=== PATIENT | female | born 1980 | race Caucasian/White ===

== ENCOUNTER 2017-03-08 17:53 | Emergency (ER) | payer OTHER, MEDICAID ==
--- NOTE | 2017-03-08 18:27 | EDPHY ---
H & P Stated Complaint: right foot injury occurred today at 11am when dropped kim on foot, +[facility] HPI/ROS: CHIEF COMPLAINT: Foot injury HISTORY OF PRESENT ILLNESS: This is a 36-year-old female who injured her right foot while trying to change a tire. The tire kim was not stable and it fell onto her foot. She has pain involving the right small toe. She has been able to ambulate. She was also struck on the left forearm. She has an abrasion at that site. She is not complaining of left forearm pain. No other injuries. REVIEW OF SYSTEMS: A ten point review of systems was performed and is negative with the exception of the items mentioned in the HPI. - Personal History LMP (Females 10-55): Hysterectomy - Medical/Surgical History Hx Diabetes: Yes Other PMH: bipolar, diabetes, gallbladder, hyst, tonsilectomy, fibromyalgia - Social History Smoking Status: Never smoked Alcohol Use: None Additional Social History: She lives in [place]. Her primary care provider is Praful Soriano. - Physical Exam Exam: General Appearance: Alert. Vital signs reviewed. Initial blood pressure 149/ 94 with a heart rate of 112. Head: Normocephalic atraumatic. Neck: Nontender to palpation over the cervical spine. Respiratory: Lungs are clear to auscultation; no wheezes, rales, or rhonchi. Cardiovascular: Regular rate and rhythm; no murmur, rub, or gallop. Gastrointestinal: Abdomen is soft and nontender. Skin: Warm and dry, no rashes on exposed skin, normal color. Extremities: Left mid forearm with a 2 cm abrasion, no bony tenderness. There is also a purple/yellow bruise does distal to this abrasion. Right foot with ecchymosis at the base of the small toe. She has full active range of motion of the toes of her right foot. Full active range of motion of her right ankle and knee. Pulses: 2+ dorsalis pedis pulse on the right. Neurological: Alert and oriented. Moving all four extremities easily and equally. Sensation intact to light touch over her right lower extremity and left upper extremity. 5/5 strength of the left upper extremity. Psychiatric: Slightly hyperactive. Pleasant and cooperative. Constitutional: Initial Vital Signs Temperature (C) 36.9 C 03/08/17 18:07 Heart Rate 112 H 03/08/17 18:07 Respiratory Rate 18 03/08/17 18:07 Blood Pressure 149/94 H 03/08/17 18:07 O2 Sat (%) 93 03/08/17 18:07 O2 Delivery Mode Room Air Allergies/Adverse Reactions: acetaminophen [From Vicodin] Allergy (Verified 03/08/17 18:04) codeine Allergy (Verified 03/08/17 18:04) hydrocodone [From Vicodin] Allergy (Verified 03/08/17 18:04) lurasidone [From Latuda] Allergy (Verified 03/08/17 18:04) oxycodone [From Percocet] Allergy (Verified 03/08/17 18:04) quetiapine [From Seroquel] Allergy (Verified 03/08/17 18:04) Home Medications: Medication Instructions Recorded Abilify 03/08/17 Gabapentin 03/08/17 Geodon 03/08/17 Minipress 03/08/17 Tizanidine HCl 03/08/17 Medical Decision Making - Diagnostics Imaging: I viewed and interpreted images myself ED Course/Re-evaluation: X-ray of the right foot is negative for fracture or dislocation. Patient was given information on rice therapy and treatment of bruising and contusion. She was given a postop shoe to wear for comfort. We discussed shannon taping her toes, again for comfort. She understands that she does not have a broken bone. She was hypertensive during her stay in the emergency department. She is aware of this will and follow up with her primary care physician. Differential Diagnosis: I considered a differential diagnosis that includes but is not limited to fracture, dislocation, ecchymosis, abrasion. - Data Points Medications Given: Discontinued Medications Ondansetron HCl (Zofran Odt) 4 mg PO EDNOW ONE Stop: 03/08/17 18:45 Last Admin: 03/08/17 18:47 Dose: 4 mg Departure - Departure Disposition: Home, Routine, Self-Care Clinical Impression: Contusion of toe of right foot Qualifiers: Encounter type: initial encounter Toe: lesser toe Damage to nail status: without damage Qualified Code(s): S90.121A - Contusion of right lesser toe(s) without damage to nail, initial encounter Condition: Good Instructions: Foot Contusion (ED), RICE Therapy (ED) Additional Instructions: Wear the shoe that we provided if it is helping with the pain. You can also try taping your small toe to the toe next to it--see if this helps with the pain. I do not see a broken bone on the xray of your foot. Ice and elevate your foot when possible. I am referring you to a local primary care doctor--in case you are unable to see your doctor in [place]. Referrals: Mary Hernandez MD [Medical Doctor] - As per Instructions
[2017-03-08] MEDS ORDERED: ONDANSETRON DISINTEGRATING 4 MG TAB PO ONE (18:44)
[2017-03-08 19:15] VITALS: BP 145/103; PULSE 92; RESP 16; TEMP 99; O2SAT 97
== END 2017-03-08 19:18 | disposition home or self-care (01) ==
LOC: CED 17:53
DX: S90.121A Contusion of right lesser toe(s) without damage to nail, initial encounter (principal); E11.9 Type 2 diabetes mellitus without complications; W20.8XXA Other cause of strike by thrown, projected or falling object, initial encounter
CPT/HCPCS: 73630; 99283; L3260